=== PATIENT | male | born 1950 | race Caucasian/White ===

== ENCOUNTER 2018-10-26 12:39 | Emergency (ER) | payer MEDICARE ==
[~2018-10-26] VITALS: Ht 185.4 cm; Wt 90.8 kg
--- NOTE | 2018-10-26 13:14 | NUR ---
PT TO ROOM 26 WITH FAMILY. PT C/O SOB, CP, ELEVATED B/P, NAUSEA. CP STARTING YESTERDAY. X2 ASA [employer]. PT DRESSED IN GOWN AND ATTACHED TO MONITOR. VSS, RESTING IN RNEY, CALL LIGHT WITHIN REACH. PT ON ROOM AIR. DENIES CP AT THIS TIME.
--- NOTE | 2018-10-26 13:15 | NUR ---
PT TO XRAY.
[2018-10-26] MEDS ORDERED: ZEDIA PO (13:19)
[2018-10-26] MEDS ORDERED: ATEN100T PO (13:19)
[2018-10-26] MEDS ORDERED: ROSU40TA PO (13:19)
[2018-10-26] MEDS ORDERED: ALBU0.63 NEB (13:19)
[2018-10-26] MEDS ORDERED: LOSA50TA14 PO (13:19)
--- NOTE | 2018-10-26 13:19 | NUR ---
PT BACK FROM XRAY. ATTACHED TO MONITOR. RESTING IN [facility] WITH CALL LIGHT WITHIN REACH AND FAMILY AT BEDSIDE.
[2018-10-26] MEDS ORDERED: ACETAMINOPHEN 500 MG TABLET PO ONE (13:30)
[2018-10-26] MEDS ORDERED: SODIUM CHLORIDE FLUSH 10ML SYR IVF ONE (13:30)
--- NOTE | 2018-10-26 13:31 | NUR ---
TECH AT BEDSIDE FOR REPEAT EKG.
--- NOTE | 2018-10-26 13:37 | NUR ---
PIV ESTABLISHED AND LABS DRAWN AND SENT.
--- NOTE | 2018-10-26 13:51 | NUR ---
REPORT GIVEN TO NESS WALTERS
[2018-10-26 13:53] LABS: BASOPHILS # (AUTO) 0.02 x10^3/uL (0-0.1); BASOPHILS % (AUTO) 0 % (0-1); EOSINOPHILS # (AUTO) 0.14 x10^3/uL (0-0.4); EOSINOPHILS % (AUTO) 2 % (1-7); LYMPHOCYTES # (AUTO) 1.75 x10^3/uL (1-3.4); LYMPHOCYTES % (AUTO) 21 % (22-44); MD NO; MEAN CORPUSCULAR HEMOGLOBIN 30.5 pg (27.5-34.5); MEAN CORPUSCULAR VOLUME 92.4 fL (81-97); MEAN PLATELET VOLUME 8.5 fL (7.4-10.4); MONOCYTES % (AUTO) 8 % (2-9); NEUTROPHILS # (AUTO) 5.93 x10^3/uL (1.8-6.8); NEUTROPHILS % (AUTO) 70 % (42-75); PLATELET COUNT 179 x10^3/uL (130-400); RED BLOOD COUNT 5.99 x10^6/uL (4.38-5.82); RED CELL DISTRIBUTION WIDTH 13.5 % (9.4-14.8)
[2018-10-26] MEDS ORDERED: ACETAMINOPHEN 500 MG TABLET ONE (13:53)
--- NOTE | 2018-10-26 13:58 | NUR ---
ASSUMING CARE OF PT. PT RESTING ON GURNEY. CP MONITORS IN PLACE. NADN. PT REFUSING ORDERED TYLENOL. AWAITING LAB RESULTS.
[2018-10-26 14:07] LABS: ALBUMIN 3.8 g/dL (3.4-5.0); ANION GAP 8 mmol/L (5-15); CHLORIDE 103 mmol/L (98-107)
[2018-10-26 14:12] LABS: CREATININE 1.02 mg/dL (0.7-1.3); TROPONIN I < 0.015 ng/mL (0.000-0.045)
[2018-10-26 14:55] VITALS: BP 120/73
--- NOTE | 2018-10-26 14:57 | NUR ---
Patient/Caregiver given discharge instructions and they have confirmed that they understand the instructions. Patient ambulatory with steady gait. Pt left with all personal belongings.
== END 2018-10-26 15:00 | disposition home or self-care (01) ==
LOC: ED 14:18
DX: R07.89 Other chest pain (principal); R10.84 Generalized abdominal pain; G44.219 Episodic tension-type headache, not intractable; I10 Essential (primary) hypertension; I25.10 Atherosclerotic heart disease of native coronary artery without angina pectoris; D75.1 Secondary polycythemia; R06.00 Dyspnea, unspecified; Z90.49 Acquired absence of other specified parts of digestive tract; Z95.1 Presence of aortocoronary bypass graft; Z87.891 Personal history of nicotine dependence
CPT/HCPCS: 36415; 74022; 80048; 82040; 83880; 84484; 85025; 93005; 99284